=== PATIENT | male | born 1935 | race Caucasian/White ===

== ENCOUNTER → 2020-12-01 13:10 | Outpatient (BNVA) | payer OTHER, MEDICAID, SELFPAY | PROVIDERS: PCP Internal Medicine Geriatric Medicine; Visit Provider Urology | DX: N40.1 Benign prostatic hyperplasia with lower urinary tract symptoms (principal); R33.9 Retention of urine, unspecified; R39.12 Poor urinary stream; R31.0 Gross hematuria | CPT/HCPCS: 99212 ==